=== PATIENT | female | born 1955 | race African-American/Black ===

== ENCOUNTER 2022-02-25 14:48 | Outpatient (CLI) | payer MEDICARE, OTHER | END 2022-02-25 14:49 | disposition home or self-care (01) | LOC: MADRAD 14:48 | PROVIDERS: ATTEND Family Medicine | DX: M25.511 Pain in right shoulder (principal) ==

== ENCOUNTER 2023-08-13 17:58 | Emergency (ER) | payer OTHER ==
[2023-08-13] MEDS ORDERED: Lidocaine 1% w/Epinephrine 1:100K 20 ML VIAL ONE (18:18)
[2023-08-13] MEDS ORDERED: Amoxicillin/Potassium Clav 875 MG TAB ONE (18:38)
[2023-08-13] MEDS ORDERED: Boostrix 0.5 ML (Tdap) VIAL (>/=7 yrs of age) ONE (18:38)
[2023-08-13] MEDS ORDERED: Lidocaine 1% PF 5 ML VIAL ONE (18:38)
== END 2023-08-13 19:30 | disposition home or self-care (01) ==
LOC: MADERS 17:58
DX: S81.852A Open bite, left lower leg, initial encounter (principal); S81.812A Laceration without foreign body, left lower leg, initial encounter; S43.401A Unspecified sprain of right shoulder joint, initial encounter; Z23 Encounter for immunization; W54.0XXA Bitten by dog, initial encounter
CPT/HCPCS: 12002; 90471; 90715